=== PATIENT | male | born 1975 ===

== ENCOUNTER → 2018-05-25 | Emergency (ER) | payer OTHER ==
[~2018-05-25] VITALS: Ht 170.2 cm; Wt 81.6 kg
[~2018-05-25] MED LIST: AVAPRO300 MG; METFORMIN HCL500 MG
== END | disposition home or self-care (01) ==
LOC: ER 12:47
DX: S00.83XA Contusion of other part of head, initial encounter (principal); W18.39XA Other fall on same level, initial encounter; Y93.89 Activity, other specified; Y92.89 Other specified places as the place of occurrence of the external cause; Y99.8 Other external cause status